=== PATIENT | male | born 1935 | race Caucasian/White ===

== ENCOUNTER 2021-04-18 08:06 | Emergency (ER) | payer OTHER, MEDICAID ==
[~2021-04-18] VITALS: Ht 162.6 cm; Wt 68.0 kg
[2021-04-18 08:08] VITALS: BP_SYST 151
[2021-04-18] MEDS ORDERED: MORPHINE 4 MG INJ. 4 MG/ML VIAL IM ONE (08:15)
[2021-04-18] MEDS ORDERED: HYDR-3917 PO (09:28)
[2021-04-18] MEDS ORDERED: IBUP-1969 PO (09:28)
[2021-04-18] MEDS ORDERED: KETOROLAC TROMETHAMINE 60 MG/2 ML VIAL IM ONE ×2 (12:15)
[2021-04-18 12:16] VITALS: BP_SYST 147
== END 2021-04-18 12:17 | disposition home or self-care (01) ==
LOC: SED 08:06
DX: M25.562 Pain in left knee (principal); I10 Essential (primary) hypertension; E11.9 Type 2 diabetes mellitus without complications
CPT/HCPCS: 73564; 96372; 99284; J1885; J2270

== ENCOUNTER 2022-01-14 09:29 | Inpatient (IN) | payer OTHER, MEDICAID, SELFPAY ==
[~2022-01-14] VITALS: Ht 162.6 cm; Wt 59.0 kg
[~2022-01-14 09:29] MED LIST: HYDR-3917 PO; IBUP-1969 PO
[2022-01-14 09:35] VITALS: BP_SYST 104
--- NOTE | 2022-01-14 09:42 | NUR ---
PT FREDERICK FROM HOME FOR GENERAL WEAKNESS X 2 DAYS. PIZZA BAKER CALLED 911, MORE LETHARGIC THAN USUAL. PT A0X3, IN NAD. RESP EVEN AND UNLABORED, ON RA @98%. PER ROBERT MAHAJAN FD, HE WAS HYPOTENSIVE AT SCENE 84/38, WAS GIVEN 250ML OF NS. CURRENTLY AT 104/63-P-79. BLOOD SUGAR AT SCENE-126MG/DL. CHRONIC A-FIB. SKIN PALE-INTACT. DENIES ANY RECENT ORAL OR RECTAL BLEEDING, DENIES BEING ON ANY BLOOD THINNERS. SAFETY PRECAUTIONS IN PLACE. WILL CONT TO MONITOR.
--- NOTE | 2022-01-14 09:44 | NUR ---
DR CARD IN ROOM FOR EXAM.
[2022-01-14] MEDS ORDERED: NACL 0.9% 1,000 ML IV ONE ×2 (10:00→11:30)
[2022-01-14] MEDS ORDERED: DILTIAZEM HCL 60 MG TABLET PO ONE ×2 (10:00→15:15)
[2022-01-14] MEDS ORDERED: dilTIAZem HCL IVP 5 MG/ML VIAL IVP ONE ×2 (10:00→11:15)
--- NOTE | 2022-01-14 10:14 | NUR ---
XRAY AT BEDSIDE
[2022-01-14 10:36] LABS: ANION GAP 16 (5-15); CALCIUM 7.7 mg/dL (8.4-11.0); CHLORIDE 97 mmol/L (98-107); CREATININE 2.76 mg/dL (0.55-1.30); GLUCOSE 138 mg/dL (70-99); SODIUM SERUM 131 mmol/L (136-145); UREA NITROGEN, BLOOD 59 mg/dL (8-21)
[2022-01-14 10:38] LABS: ACETONE, SERUM NEGATIVE (NEGATIVE)
[2022-01-14 10:42] LABS: ALANINE AMINOTRANSFERASE 26 U/L (12-78); ALBUMIN 2.8 g/dL (3.4-4.8); ASPARTATE AMINOTRANSFERASE 25 U/L (10-37); TOTAL BILIRUBIN 0.4 mg/dL (0.0-1.0)
--- NOTE | 2022-01-14 11:10 | NUR ---
PT CONTINUES TO BE HTPOTENSIVE AND IRREGULAR HEART RATE OF 130'S. DR CARD UPDATED, NEW ORDERS RECEIEVED AND PROCESSED.
[2022-01-14 11:24] LABS: BASOPHILS # (AUTO) 0.1 K/uL (0.0-0.2); BASOPHILS % (AUTO) 0.6 % (0.0-2.0); EOSINOPHILS # (AUTO) 0.2 K/uL (0.0-0.4); EOSINOPHILS % (AUTO) 1.4 % (0.0-4.0); HEMATOCRIT 32.8 % (36-54); HEMOGLOBIN 11.1 g/dL (14.0-18.0); LYMPHOCYTES # (AUTO) 2.2 K/uL (1.0-5.5); LYMPHOCYTES % (AUTO) 17.8 % (20.5-51.5); MEAN CORPUSCULAR HEMOGLOBIN 32 pg (27-31); MEAN CORPUSCULAR HGB CONC 34 % (32-36); MONOCYTES # (AUTO) 1.2 K/uL (0.0-1.0); MONOCYTES % (AUTO) 9.7 % (1.7-9.3); NEUTROPHILS # (AUTO) 8.6 K/uL (1.8-7.7); NEUTROPHILS % (AUTO) 70.5 % (40.0-70.0); PLATELET COUNT (AUTO) 359 K/uL (130-430); RED BLOOD CELL COUNT(AUTO) 3.42 MIL/uL (4.2-6.2); RED CELL DISTRIBUTION WIDTH 13.8 % (9.0-15.0); WHITE BLOOD COUNT (AUTO) 12.1 K/uL (4.8-10.8)
[2022-01-14 11:32] LABS: MEAN CORPUSCULAR VOLUME 96 fL (79.0-98.0)
[2022-01-14] MEDS ORDERED: cefTRIAXone 1 GM in D5W 50 ML IV ONE (11:45)
--- NOTE | 2022-01-14 11:46 | NUR ---
PT'S BP 112/62, HR-109, DR CARD MADE AWARE, PT IN NAD. RESP EVEN AND UNLABORED. WILL CONT TO MONITOR.
[2022-01-14] MEDS ORDERED: cefTRIAXone 1 GM VIAL ONE (11:52)
--- NOTE | 2022-01-14 12:40 | NUR ---
DR GARCIA IN ROOM FOR EXAM.
[2022-01-14 12:46] LABS: BILIRUBIN,URINE NEGATIVE (NEGATIVE); BLOOD, URINE 2+ (NEGATIVE); CLARITY/URINE TURBID (CLEAR); COLOR,URINE YELLOW (YELLOW); GLUCOSE,URINE NEGATIVE (NEGATIVE); KETONES,URINE NEGATIVE (NEGATIVE); LEUKOCYTE ESTERASE ,URINE 2+ (NEGATIVE); NITRITE, URINE POSITIVE (NEGATIVE); PROTEIN URINE 2+ (NEGATIVE); UROBILINOGEN,URINE 0.2 (0.2-1.0)
--- NOTE | 2022-01-14 13:00 | NUR ---
RECEIVED PT FROM SUMAN LOUISE. PT IS AAOX4. TELE [address] READING AFIB HR 101.. RESP E/U, LUNG SOUNDS CTA. ON R/A. NO COUGH OR SOB NOTED. ABDOMEN SOFT, NONTENDER, NONDISTENDED. BOWEL SOUNDS ACTIVE X4, VOIDS FREELY WITH URINAL WITH ASSIST. SKIN CDI. DISTAL PULSE NORMAL, SKIN WARM, NO EDEMA. IV CATH TO LAC AND RAC BOTH 2OG. NS INITIATED. PT DENIES C/P, PRESSURE AND PALPITATIONS. DENIES PAIN AND DISCOMFORT. ORIENTED TO CALL LIGHT AND ROOM, FALL PROTOCOL IN PLACE. BED IN LOWEST.
[2022-01-14 13:08] LABS: BACTERIA,URINE MODERATE /HPF (None Seen); WBC,URINE 50-80 /HPF (0-3)
--- NOTE | 2022-01-14 13:21 | NUR ---
Patient will be admitted to care of TELE. Admitted to unit. Will go to room . Belongings list completed. Complete and up to date summary report printed. SBAR report to be given at bedside with opportunity for questions.
--- NOTE | 2022-01-14 13:31 | NUR ---
CONSULTATION PAGED/CALLED Reason for Consultation: [] AFIB/HYPOTENSION Person Who was Notified: [] PRATEEK Consulting Physician: [] DR JACKSON Straight Knife Machine Cutter Specialty: [] CARDIO Ordering Physician: [] DR GARCIA
[2022-01-14] MEDS: NACL 0.9% 1,000 ML IV SCH ×2 (13:49→21:22)
[2022-01-14] MEDS ORDERED: GLUCOSE (DEXTROSE) ORAL GEL -Adults PO PRN (15:00)
[2022-01-14] MEDS ORDERED: D5W 1,000 ML IV PRN (15:00)
[2022-01-14] MEDS ORDERED: ONDANSETRON HCL 4 MG/2 ML VIAL IVP PRN (15:00)
[2022-01-14] MEDS ORDERED: DEXTROSE 50%-WATER 50 ML DISP.SYRIN IVP PRN (15:00)
[2022-01-14 16:10] VITALS: BP_SYST 88
[2022-01-14] MEDS: INSULIN REGULAR, HUMAN 100 UNITS/ML, 10 ML VIAL (humuLIN R) SUBCUT PRN (17:46)
--- NOTE | 2022-01-14 18:25 | NUR ---
CONSULTATION PAGED/CALLED Reason for Consultation: [] ARF Person Who was Notified: []DR BROTHERS Consulting Physician: [] DR BROTHERS Plush Brusher Specialty: [] NEPHRO Ordering Physician: []
--- NOTE | 2022-01-14 19:31 | NUR ---
ENDORSED ALL CARE TO SUMAN ROCKBREW HOUSE SUPERVISOR, ALL QUESTIONS AND CONCERNS ADDRESSED.
[2022-01-14 19:41] LABS: ANION GAP 13 (5-15); CALCIUM 7.3 mg/dL (8.4-11.0); CHLORIDE 101 mmol/L (98-107); CREATININE 2.29 mg/dL (0.55-1.30); GLUCOSE 141 mg/dL (70-99); POTASSIUM 3.9 mmol/L (3.5-5.1); SODIUM SERUM 133 mmol/L (136-145); UREA NITROGEN, BLOOD 54 mg/dL (8-21)
[2022-01-14 20:00] VITALS: BP_SYST 96
[2022-01-14] MEDS: ACETAMINOPHEN 325 MG TABLET PO PRN (21:23)
[2022-01-14] MEDS: ENOXAPARIN SODIUM 30 MG/0.3 ML SYRINGE SUBCUT SCH (21:29)
[2022-01-14] MEDS: DILTIAZEM HCL 60 MG TABLET PO SCH (21:30)
[2022-01-15] MEDS: NACL 0.9% 1,000 ML IV SCH ×3 (04:27→21:32)
[2022-01-15 07:27] LABS: ANION GAP 13 (5-15); CALCIUM 7.3 mg/dL (8.4-11.0); CHLORIDE 103 mmol/L (98-107); CREATININE 2.08 mg/dL (0.55-1.30); GLUCOSE 103 mg/dL (70-99); POTASSIUM 3.8 mmol/L (3.5-5.1); SODIUM SERUM 133 mmol/L (136-145); UREA NITROGEN, BLOOD 44 mg/dL (8-21)
--- NOTE | 2022-01-15 08:05 | NUR ---
OPENING NOTES: PATIENT EATING BREAKFAST. HOB ELEVATED. BREATHING EVEN AND NON LABORED TO RA. FALL, SAFETY AND ASPIRATION MEASURES REINFORCE. CALL LIGHT WITHIN REACH.
[2022-01-15 08:10] VITALS: BP_SYST 108
[2022-01-15] MEDS: DILTIAZEM HCL 60 MG TABLET PO SCH (08:13)
[2022-01-15] MEDS ORDERED: METOPROLOL TARTRATE 25 MG TABLET PO ONE (09:00)
[2022-01-15] MEDS ORDERED: ASPIRIN 81 MG TAB.CHEW PO ONE (09:00)
[2022-01-15] MEDS ORDERED: AMIODARONE HCL 200 MG TABLET PO ONE (09:00)
--- NOTE | 2022-01-15 09:10 | NUR ---
SPOKE TO DR. JACKSON: SPOKE TO DR. JACKSON RE: HIGH HR. DR. NIEVES MADE ORDERS. DR. AJCKSON SAW PATIENT DURING ROUNDS.
--- NOTE | 2022-01-15 09:22 | NUR ---
INFORMED US, B[place],TO NOTIFY FERNY WILL HR IS UP BETWEEN 150'S TO 180'S.
[2022-01-15] MEDS: cefTRIAXone 1 GM IVPB PREMIX 50 ML IV SCH (09:36)
[2022-01-15 10:07] LABS: EOSINOPHILS # (AUTO) 0.1 K/uL (0.0-0.4); EOSINOPHILS % (AUTO) 1.1 % (0.0-4.0); HEMATOCRIT 33.9 % (36-54); HEMOGLOBIN 11.5 g/dL (14.0-18.0); LYMPHOCYTES # (AUTO) 1.5 K/uL (1.0-5.5); LYMPHOCYTES % (AUTO) 14.3 % (20.5-51.5); MEAN CORPUSCULAR HEMOGLOBIN 33 pg (27-31); MEAN CORPUSCULAR HGB CONC 34 % (32-36); MEAN CORPUSCULAR VOLUME 96 fL (79.0-98.0); MONOCYTES # (AUTO) 0.8 K/uL (0.0-1.0); PLATELET COUNT (AUTO) 342 K/uL (130-430); RED BLOOD CELL COUNT(AUTO) 3.53 MIL/uL (4.2-6.2); RED CELL DISTRIBUTION WIDTH 14.6 % (9.0-15.0); WHITE BLOOD COUNT (AUTO) 10.8 K/uL (4.8-10.8)
[2022-01-15 10:10] LABS: BASOPHILS # (AUTO) 0.1 K/uL (0.0-0.2); BASOPHILS % (AUTO) 0.5 % (0.0-2.0); NEUTROPHILS # (AUTO) 8.3 K/uL (1.8-7.7); NEUTROPHILS % (AUTO) 77.1 % (40.0-70.0)
[2022-01-15 12:26] VITALS: BP_SYST 110
--- NOTE | 2022-01-15 14:00 | NUR ---
RN NOTES/BLADDER SCAN: BLADDER SCAN DONE. (387). PATIENT VOIDED ([address] GARCIA PATIENT REFUSED HERNANDEZ CATHETER INSERTION.
[2022-01-15] MEDS: ACETAMINOPHEN 325 MG TABLET PO PRN (16:57)
[2022-01-15 17:34] VITALS: BP_SYST 110
--- NOTE | 2022-01-15 17:51 | NUR ---
Dietitian Recommendations * CCHO, 2 gm Na diet, Glucerna TID (ONS yields 660 kcal/day, 30 gm protein/day) * Encourage increase PO intakes LP, RD Please refer to Nutrition Assessment for details. Addendum: 01/15/22 at [address] Amended: Links added.
--- NOTE | 2022-01-15 19:25 | NUR ---
CLOSING NOTES: PATIENT RESTING IN BED. NO S/S OF ACUTE DISTRESS NOTED. BED LOCKED, ALARM ON AND IN LOWEST POSITION. CALL LIGHT WITHIN REACH. FALL, SAFETY AND ASPIRATION MEASURES PROVIDED. NEEDS MET THROUGHOUT SHIFT. ENDORSED TO CONNECTION WORKER RN.
--- NOTE | 2022-01-15 19:30 | NUR ---
OPENING NOTES ENDORSED CARE FROM DAY SHIFT. PT IS SITTING IN BED WITH DAUGHTER BEDSIDE. NO APPARENT DISTRESS NOTED. FLUIDS RUNNING ORDERED. VITALS ARE STABLE. BED IN LOWEST POSITION WITH CALL LIGHT WITHIN REACH
[2022-01-15 20:00] VITALS: BP_SYST 134
[2022-01-15] MEDS ORDERED: AMIODARONE HCL 200 MG TABLET PO SCH (21:00)
[2022-01-15] MEDS: METOPROLOL TARTRATE 25 MG TABLET PO SCH (21:34)
[2022-01-15] MEDS: INSULIN REGULAR, HUMAN 100 UNITS/ML, 10 ML VIAL (humuLIN R) SUBCUT PRN (21:45)
[2022-01-15] MEDS: ENOXAPARIN SODIUM 30 MG/0.3 ML SYRINGE SUBCUT SCH (21:45)
--- NOTE | 2022-01-15 22:17 | NUR ---
BLADDER SCAN BLADDER SCAN REVEALED 807 ML RESIDUAL OF URINE. PT STILL REFUSING CATHETER INSERTION
[2022-01-16] VITALS: BP_SYST 95
[2022-01-16] MEDS: NACL 0.9% 1,000 ML IV SCH ×2 (03:23→17:31)
--- NOTE | 2022-01-16 06:00 | NUR ---
HYPOGLYCEMIA PT HAD AN EPISODE OF HYPOGLYCEMIA WITH A BLOOD SUGAR OF 51, NO DISTRESS OR SYMPTOMS NOTED. AFTER GIVING JUICE AND A SUGAR PACKET THE PTS BLOOD SUGAR WENT UP TO 73. DR GARCIA HAS BEEN PAGED AND AWAITING HIS CALL BACK. WILL CONTINUE TO MONITOR Addendum: 01/16/22 at 0700 by Roger Wright LVN DR GARCIA BEDSIDE,SPOKE WITH DR GARCIA AT 0650 BEDSIDE. NO CHANGE IN ORDERS AT THIS TIME
--- NOTE | 2022-01-16 06:19 | NUR ---
Attending Md Dr Pritchett was called, re: BS OF 73. Spoke to Wilda.
--- NOTE | 2022-01-16 07:01 | NUR ---
CLOSING NOTE ENDORSED CARE TO DAY SHIFT. PT IS SLEEPING IN BED . NO APPARENT DISTRESS NOTED. FLUIDS RUNNING ORDERED. VITALS ARE STABLE. BED IN LOWEST POSITION WITH CALL LIGHT WITHIN REACH
[2022-01-16 07:17] LABS: ALANINE AMINOTRANSFERASE 20 U/L (12-78); ALBUMIN 2.1 g/dL (3.4-4.8); ANION GAP 12 (5-15); ASPARTATE AMINOTRANSFERASE 40 U/L (10-37); CHLORIDE 106 mmol/L (98-107); CREATININE 1.71 mg/dL (0.55-1.30); GLUCOSE 51 mg/dL (70-99); POTASSIUM 3.8 mmol/L (3.5-5.1); SODIUM SERUM 135 mmol/L (136-145); THYROID STIMULATING HORMONE 2.34 uIu/mL (0.36-3.74); TOTAL BILIRUBIN 0.2 mg/dL (0.0-1.0); UREA NITROGEN, BLOOD 34 mg/dL (8-21)
[2022-01-16 07:34] LABS: CALCIUM 6.9 mg/dL (8.4-11.0)
--- NOTE | 2022-01-16 07:40 | NUR ---
at bedside to see patient. informed him of Calcium 6.9
[2022-01-16 08:00] VITALS: BP_SYST 130
[2022-01-16] MEDS: ASPIRIN 81 MG TAB.CHEW PO SCH (09:00)
[2022-01-16] MEDS: cefTRIAXone 1 GM IVPB PREMIX 50 ML IV SCH (09:00)
[2022-01-16] MEDS: METOPROLOL TARTRATE 25 MG TABLET PO SCH ×2 (09:00→21:14)
[2022-01-16] MEDS: TAMSULOSIN HCL 0.4 MG CAP PO SCH (09:00)
[2022-01-16 09:23] LABS: BASOPHILS % (AUTO) 0.4 % (0.0-2.0); EOSINOPHILS # (AUTO) 0.2 K/uL (0.0-0.4); EOSINOPHILS % (AUTO) 1.9 % (0.0-4.0); HEMATOCRIT 28.3 % (36-54); HEMOGLOBIN 9.5 g/dL (14.0-18.0); LYMPHOCYTES # (AUTO) 2.2 K/uL (1.0-5.5); LYMPHOCYTES % (AUTO) 20.6 % (20.5-51.5); MEAN CORPUSCULAR HEMOGLOBIN 33 pg (27-31); MEAN CORPUSCULAR HGB CONC 34 % (32-36); MEAN CORPUSCULAR VOLUME 96 fL (79.0-98.0); MONOCYTES # (AUTO) 0.9 K/uL (0.0-1.0); NEUTROPHILS # (AUTO) 7.4 K/uL (1.8-7.7); NEUTROPHILS % (AUTO) 69.1 % (40.0-70.0); PLATELET COUNT (AUTO) 292 K/uL (130-430); RED BLOOD CELL COUNT(AUTO) 2.93 MIL/uL (4.2-6.2); RED CELL DISTRIBUTION WIDTH 14.2 % (9.0-15.0); WHITE BLOOD COUNT (AUTO) 10.7 K/uL (4.8-10.8)
[2022-01-16 12:00] VITALS: BP_SYST 124
[2022-01-16 16:00] VITALS: BP_SYST 126
[2022-01-16 19:00] VITALS: BP_SYST 126
--- NOTE | 2022-01-16 19:15 | NUR ---
change of shift.pt.presents quiescent affect;calm,resting.pt.presents iv access x2 location rt.antecubital intact iv fluids infusing. iv access#2 location lt.antecubital intact iv lock.no c/o pain,nausea.pt.capable to reposition self.general status stable.respiratory status;unlabored@room air.call light/telephone w/in access of the pt.
--- NOTE | 2022-01-16 19:21 | NUR ---
OPENING NOTES ENDORSED CARE FROM DAY SHIFT. PT IS LYING IN BED. PT IS GRUMPY AND NOT HAPPY TO BE IN THE HOSPITAL. NO APPARENT DISTRESS NOTED. FLUIDS RUNNING ORDERED. BED IN LOWEST POSITION WITH CALL LIGHT WITHIN REACH
[2022-01-16 20:00] VITALS: BP_SYST 126; BP_SYST 127
--- NOTE | 2022-01-16 20:00 | NUR ---
pt.assessed.v/s assessed values wnl.no c/o pain,nausea.iv access intact iv fluids infusing.i have apprised the pt.that snacks/beverages are available w/in the shift.no requests posited.pt.capable to reposition self.call light/telephone w/in access of the pt.
--- NOTE | 2022-01-16 21:00 | NUR ---
2100p medications administered.pt.capable to ingest po medications w/out difficulty.no c/o pain,nausea.call light/telephone w/in access of the pt.
[2022-01-16] MEDS: ENOXAPARIN SODIUM 30 MG/0.3 ML SYRINGE SUBCUT SCH (21:12)
[2022-01-16] MEDS: AMIODARONE HCL 200 MG TABLET PO SCH (21:12)
--- NOTE | 2022-01-16 21:20 | NUR ---
BLADDER SCAN URINE RESIDUAL OF >527 ML WAS FOUND. PT STILL REFUSING HERNANDEZ CATHETER INSERTION AND STRAIGHT CATH. PT WAS EDUCATED ON HIS INCREASED RISK OF DEVELOPING A UTI. PT STILL REFUSED. PT ALSO REFUSED LOVENOX ADMINISTRATION.
--- NOTE | 2022-01-16 22:00 | NUR ---
pt.assessed.pt.presents quiescent affect;calm,somnolent.per flacc pain mgx pt.absent facial grimaces/body posturing.iv access intact iv fluids infusing.pt.capable to reposition self.pt.assessed for cleanliness.pt.repositioned.call light/telephone w/in access of the pt.
[2022-01-17] VITALS (7 sets, daily range): BP systolic 112–143
--- NOTE | 2022-01-17 | NUR ---
pt.assessed.v/s assessed values wnl.iv access intact iv fluids infusing.per flacc pain mgx pt.absent facial grimaces/body posturing.pt.assessed for cleanliness.pt.repositioned.call light/telephone placed w/in access of the pt.
--- NOTE | 2022-01-17 02:00 | NUR ---
pt.assessed.pt.presents quiescent affect;calm,somnolent.per flacc pain mgx pt.absent facial grimaces/body posturing. iv access intact iv fluids infusing.pt.assessed for cleanliness.pt.repositioned.call light/telephone placed w/in access of the pt.
--- NOTE | 2022-01-17 04:00 | NUR ---
pt.assessed.pt.presents quiescent affect calm,somnolent.iv access intact iv fluids infusing.per flacc pain mgx pt.absent facial grimaces/body posturing.pt.assessed for cleanliness.pt,repositioned.call light/telephone placed w/in access of the pt.
[2022-01-17] MEDS: NACL 0.9% 1,000 ML IV SCH (04:36)
--- NOTE | 2022-01-17 06:22 | NUR ---
pt.assessed.iv access intact IV FlUIDS INFUSiNG.nO C/O PaIN,NaUsEA.BLOOD glucose assessed VALUE;96MG/DL. snack/tea provided.pt.capable to reposition self.call light/telephone placed w/in access of the pt.
[2022-01-17 06:27] LABS: BASOPHILS % (AUTO) 0.3 % (0.0-2.0); EOSINOPHILS # (AUTO) 0.3 K/uL (0.0-0.4); EOSINOPHILS % (AUTO) 3.2 % (0.0-4.0); HEMATOCRIT 27.8 % (36-54); HEMOGLOBIN 9.6 g/dL (14.0-18.0); LYMPHOCYTES # (AUTO) 1.7 K/uL (1.0-5.5); LYMPHOCYTES % (AUTO) 19.9 % (20.5-51.5); MEAN CORPUSCULAR HEMOGLOBIN 33 pg (27-31); MEAN CORPUSCULAR HGB CONC 34 % (32-36); MEAN CORPUSCULAR VOLUME 97 fL (79.0-98.0); MONOCYTES # (AUTO) 0.7 K/uL (0.0-1.0); MONOCYTES % (AUTO) 8.5 % (1.7-9.3); NEUTROPHILS # (AUTO) 5.9 K/uL (1.8-7.7); NEUTROPHILS % (AUTO) 68.1 % (40.0-70.0); PLATELET COUNT (AUTO) 280 K/uL (130-430); RED BLOOD CELL COUNT(AUTO) 2.86 MIL/uL (4.2-6.2); RED CELL DISTRIBUTION WIDTH 14.2 % (9.0-15.0); WHITE BLOOD COUNT (AUTO) 8.6 K/uL (4.8-10.8)
[2022-01-17 06:50] LABS: ANION GAP 11 (5-15); CHLORIDE 108 mmol/L (98-107); CREATININE 1.46 mg/dL (0.55-1.30); GLUCOSE 97 mg/dL (70-99); POTASSIUM 3.8 mmol/L (3.5-5.1); SODIUM SERUM 137 mmol/L (136-145); UREA NITROGEN, BLOOD 25 mg/dL (8-21)
--- NOTE | 2022-01-17 07:35 | NUR ---
MORNING ROUNDS: PATIENT RESTING DURING ROUNDS. IV FLUIDS RUNNING AT RIGHT AC INTACT. CALL LIGHT WITH IN REACH. BED LOCKED AT LOWEST POSITION.SAFETY MEASURES RENDERED. CONTINUE TO MONITOR.
[2022-01-17] MEDS: METOPROLOL TARTRATE 25 MG TABLET PO SCH ×2 (09:10→20:27)
[2022-01-17] MEDS: AMIODARONE HCL 200 MG TABLET PO SCH (09:11)
[2022-01-17] MEDS: TAMSULOSIN HCL 0.4 MG CAP PO SCH (09:12)
[2022-01-17] MEDS: ASPIRIN 81 MG TAB.CHEW PO SCH (09:12)
[2022-01-17] MEDS: cefTRIAXone 1 GM IVPB PREMIX 50 ML IV SCH (09:40)
[2022-01-17] MEDS ORDERED: APIXABAN 2.5 MG TABLET PO ONE (10:15)
--- NOTE | 2022-01-17 10:30 | NUR ---
PHYSICAL THERAPIST: PHYSICAL THERAPIST WORKING WITH THE PATIENT. PT ASSISTED PATIENT TO AMBULATES USING FWW IN THE ROOM.TOLERATED WELL.
--- NOTE | 2022-01-17 11:30 | NUR ---
SITTING ON CHAIR: ASSISTED PATIENT SITTING ON THE CHAIR AND ATE LUNCH.
[2022-01-17] MEDS: INSULIN REGULAR, HUMAN 100 UNITS/ML, 10 ML VIAL (humuLIN R) SUBCUT PRN ×2 (11:33→17:02)
--- NOTE | 2022-01-17 13:35 | NUR ---
BACK TO BED: ASSISTED PATIENT BACK TO BED. USES URINAL TO VOID. HAD MINIMAL AMOUNT OF CLOUDY URINE.
--- NOTE | 2022-01-17 16:14 | NUR ---
Food Manager: special delivery worker Estefany spoke to patient at the bedside.
--- NOTE | 2022-01-17 16:17 | NUR ---
Obstetrician WM Marques met with SUMAN Salazar to discuss SW referral due to "patient living alone", and to inquire into this mental status prior to meeting with patient. WM Marques met with patient at bedside and completed introductions. Patient shared he currently lives in an apartment, and receives in-home support 5 days a week. He also shared his lives on the second floor in the same building but was unable to recall her name. He also received support from his daughter, but was unable to recall her name. Patient was unable to share when his hospital stay began, he was able to share not feeling well at home and his in home nurse contacting emergency services. MANAGER INTRANETCharlie Stephensa will followup with HCP upper caser to address concerns related to him living alone.
--- NOTE | 2022-01-17 17:00 | NUR ---
DAUGHTER VISITS: SPOKE WITH DTR BHAVIN AND WOULD LIKE TO TALK AGAIN WITH URO REGARDING HERNANDEZ INSERTION IF POSSIBLE TO GIVE PAIN MEDS OR NUMBING PRIOR TO HERNANDEZ INSERTION. UPDATES ANTONIETA.
--- NOTE | 2022-01-17 18:22 | NUR ---
DOWNGRADE TO MEDICAL SURGICAL: DOWNGRADE TO MS PER POLICY.
--- NOTE | 2022-01-17 18:35 | NUR ---
BLADDER SCAN: BLADDER SCAN SHOWED <529ML.PATIENT STILL REFUSING CATHETER INSERTION AND EXPLAINED THE POSSIBLE SIDE EFFECTS OF RETAINING URINE IN THE BLADDER .
--- NOTE | 2022-01-17 18:39 | NUR ---
EVENING ROUNDS: PATIENT HAD DINNER. ATE 50% OF HIS TRAY. IV FLUIDS RUNNING WELL RIGHT AC INTACT. CALL LIGHT WITH IN REACH. BED LOCKED AT LOWEST POSITION. NO ACUTE DISTRESS.CONTINUE TO MONITOR.
--- NOTE | 2022-01-17 19:15 | NUR ---
OPENING NOTES/ROUNDS; RECEIVED REPORT FROM OUTGOING NURSE. PT LYING IN BED, FACIAL EXPRESSIONS CALM AND RELAXED, NO S/SX OF PAIN, DISCOMFORT OR RESPIRATORY DISTRESS. VITALS MEASURED WNL, PT SATING 100% ON RA, TEMP 98.6, BP 112/46, R 17. PT DENIES ANY PAIN OR DISCOMFORT.
[2022-01-17] MEDS: APIXABAN 2.5 MG TABLET PO SCH (20:25)
[2022-01-18] MEDS: NACL 0.9% 1,000 ML IV SCH ×2 (00:38→21:08)
--- NOTE | 2022-01-18 05:24 | NUR ---
BLADDER SCAN BLADDER SCAN REVEALED URINE<343ML, STILL REFUSING HERNANDEZ CATHETER. WANTS BED SANCHEZ INSTAED FOR BM. BLOOD COLLECTED FOR LAB WORK, CBC, AND CMP.
--- NOTE | 2022-01-18 07:45 | NUR ---
Morning Rounds: Patient sleeping on the bed. Iv fluids running well at right arm intact. Call light with in reach. Bed locked at lowest position. No in any respiratory distress.
[2022-01-18 07:52] LABS: BASOPHILS % (AUTO) 0.6 % (0.0-2.0); EOSINOPHILS # (AUTO) 0.3 K/uL (0.0-0.4); EOSINOPHILS % (AUTO) 3.4 % (0.0-4.0); HEMATOCRIT 28.1 % (36-54); HEMOGLOBIN 9.7 g/dL (14.0-18.0); LYMPHOCYTES # (AUTO) 2.3 K/uL (1.0-5.5); LYMPHOCYTES % (AUTO) 26.1 % (20.5-51.5); MEAN CORPUSCULAR HEMOGLOBIN 35 pg (27-31); MEAN CORPUSCULAR HGB CONC 34 % (32-36); MEAN CORPUSCULAR VOLUME 103 fL (79.0-98.0); MONOCYTES # (AUTO) 0.7 K/uL (0.0-1.0); MONOCYTES % (AUTO) 7.8 % (1.7-9.3); NEUTROPHILS # (AUTO) 5.6 K/uL (1.8-7.7); NEUTROPHILS % (AUTO) 62.1 % (40.0-70.0); PLATELET COUNT (AUTO) 289 K/uL (130-430); RED BLOOD CELL COUNT(AUTO) 2.73 MIL/uL (4.2-6.2); RED CELL DISTRIBUTION WIDTH 14.1 % (9.0-15.0); WHITE BLOOD COUNT (AUTO) 8.9 K/uL (4.8-10.8)
[2022-01-18 08:09] LABS: ALANINE AMINOTRANSFERASE 28 U/L (12-78); ALBUMIN 2.1 g/dL (3.4-4.8); ANION GAP 13 (5-15); ASPARTATE AMINOTRANSFERASE 43 U/L (10-37); CALCIUM 7.1 mg/dL (8.4-11.0); CHLORIDE 107 mmol/L (98-107); CREATININE 1.32 mg/dL (0.55-1.30); GLUCOSE 80 mg/dL (70-99); SODIUM SERUM 135 mmol/L (136-145); TOTAL BILIRUBIN 0.2 mg/dL (0.0-1.0); UREA NITROGEN, BLOOD 24 mg/dL (8-21)
[2022-01-18 08:10] VITALS: BP_SYST 113
--- NOTE | 2022-01-18 08:23 | NUR ---
PHYSICAL THERAPY CO-SIGN The Physical Therapy Progress Notes documented by Inset Cutter have been reviewed. Reviewed/Co-Signed by: Paul Driscoll Documentation Done by: SHANTELLE BONILLA PTA Addendum: 01/18/22 at 0823 by Paul Driscoll PT Amended: Links added.
[2022-01-18] MEDS: cefTRIAXone 1 GM IVPB PREMIX 50 ML IV SCH (08:26)
[2022-01-18] MEDS: ASPIRIN 81 MG TAB.CHEW PO SCH (08:26)
[2022-01-18] MEDS: TAMSULOSIN HCL 0.4 MG CAP PO SCH (08:28)
[2022-01-18] MEDS: APIXABAN 2.5 MG TABLET PO SCH ×2 (08:28→21:10)
[2022-01-18] MEDS: METOPROLOL TARTRATE 25 MG TABLET PO SCH ×2 (08:29→21:09)
[2022-01-18] MEDS: AMIODARONE HCL 200 MG TABLET PO SCH (08:32)
--- NOTE | 2022-01-18 08:42 | NUR ---
TRAINING PROGRAM DEVELOPER ROUNDS: TRAINING PROGRAM DEVELOPER FOR URO CAME TO SEE PATIENT AND INFORMED HER PT'S DAUGHTER BHAVIN WANTS TO TALK TO URO FOR SOME QUESTIONS/ISSUES REGARDING CATHETER PLACEMENT.
[2022-01-18] MEDS: ACETAMINOPHEN 325 MG TABLET PO PRN (11:17)
[2022-01-18 12:23] VITALS: BP_SYST 123
--- NOTE | 2022-01-18 13:42 | NUR ---
Nutrition F/U Admitting Diagnosis Atr fibr, hypotension Reviewed Pertinent Medical/Surgical Hx Medical Record Medical History Comment: DM, HTN, and typically non-compliant w/ diet and BG control per physician notes Pt also found w/ sepsis, septic shock, complicated UTI, bilat hydronephrosis, distended bladder w/ wall thickening, and acute obstructive uropathy per physician notes SARS-CoV-2 Ag (Rapid) Negative 01/[address] bedside visit deferred d/t high RD workload. Per EMR review, pt has urinary retention and is refusing FC; S/P renal US suggestive of upper tract obstruction per MD notes; on RA; 57% average PO intakes x7 meal records; abd is soft w/ active bowel sounds; last BM x2 01/17; Yaakov scale: 19, no PIs noted. Pts PO intake improved slightly, but still needs ONS. Current Diet Order/Nutrition Support Consistent Carbohydrate, 2 gm Na, Glucerna shake TID x3 days Patient/Significant Other Unable To Verbalize Education Provided Not Indicated Pertinent Medications SSI, Lopressor Pertinent Labs 01/18: Na 135 L, BUN 24 H, Cr 1.32 H, BG 80 WNL, POC BG 148 H 01/15: HgbA1C 6.8H Height (Feet) 5 feet Height (Inches) 4.00 inches Weight (Pounds) 130 pounds Weight (Calculated Kilograms) 58.127341 kilograms Patient Weight 58.967 kg Body Mass Index 22.31 kg/m2 %IBW 100 [place]/Adjusted Body Weight 130#/59 kg Recent Weight Change Unable to verify Weight Status Underweight Food Allergies Unable to verify Usual Diet At Home Unable to verify Current % PO Poor (25-49%) Estimated Energy Expenditure (kcals/day) 6111-4924 (30-35 kcal/kg CBW d/t sepsis) Estimated Protein Required (g/day) 89-118 gm/day (1.5-2 gm/kg CBW d/t sepsis) Estimated Fluid Required (l/day) 1.8-2 (1 ml/kcal/day for maintenance) Problem/Etiology/Signs/Symptoms Increased nutritional needs R/T metabolic demands AEB estimated nutritional requirements for sepsis. (*ongoing) Expected Outcomes/Goals - Monitor appetite and PO intakes w/ goal of pt meeting >50% of estimated nutritional needs, labs trending WNL, normal GI function, and skin integrity/wt maintenance Dietitian Recommendations * Continue current diet prescription: CCHO, 2 gm Na diet, Glucerna TID (ONS yields 660 kcal/day, 30 gm protein/day) * Encourage increase PO intakes Follow Up High Risk: F/U in 2-3days
--- NOTE | 2022-01-18 14:30 | NUR ---
MD ROUNDS: DR GARCIA CAME TO SEE PATIENT IN THE ROOM. HE WILL SPEAK TO DAUGHTER BHAVIN REGARDING PLAN OF CARE AND UPDATES.
[2022-01-18 16:01] VITALS: BP_SYST 128
--- NOTE | 2022-01-18 18:34 | NUR ---
EVENING ROUNDS: PATIENT STILL HAVING DINNER. IV FLUIDS RUNNING WELL AT RIGHT FOREARM. CALL LIGHT WITH IN REACH. BED LOCKED AT LOWEST POSITION. NO ACUTE DISTRESS.
--- NOTE | 2022-01-18 18:38 | NUR ---
BLADDER SCAN: BLADDER SCAN SHOWED <429ML.
--- NOTE | 2022-01-18 18:50 | NUR ---
END OF SHIFT: PATIENT STILL HAVING HIS DINNER. IV FLUIDS RUNNING AT RIGHT FOREARM INTACT.CALL LIGHT WITH IN REACH.BED LOCKED AT LOWEST POSITION.CONTINUE TO MONITOR.STABLE.
[2022-01-18 19:00] VITALS: BP_SYST 123
--- NOTE | 2022-01-18 19:30 | NUR ---
Patient received from AM shift. Patient is AA&Ox3 able to make needs known denies chest pain or SOB. Chest rise is even and unlabored on RA. Normal heart sounds present. Active BS x4 on auscultation, no distention noted, denies pain with palpation. Patient is able to void into the urinal and denies any pain with urination at this time. PIV noted to RAC and is running NS at 50ml/hr, C/D/I, no s/s of infiltration. Safety measures are in place including: Bed locked, armed, in the lowest position, bed rails up x2, and patient has call light within reach. Will continue to monitor throughout the shift.
[2022-01-18 20:00] VITALS: BP_SYST 123
[2022-01-19 02:00] VITALS: BP_SYST 120
--- NOTE | 2022-01-19 05:30 | NUR ---
BLADDER SCAN: BLADDER SCAN SHOWED <290ML in bladder Patient is still refusing traylro cath, states "only if knocked out first". Patient is voiding in urinal 250ml and had episode of incontinence in clau pad.
--- NOTE | 2022-01-19 06:45 | NUR ---
Patient is in bed resting no s/s of distress is noted. Chest rise is even and unlabored on RA and patient is able to verbalize needs and denies any pain or distress. All current shift needs have been met and patient has call light within reach. Will differ further care to AM shift nurse for continuity of care.
--- NOTE | 2022-01-19 07:29 | NUR ---
PHYSICAL THERAPY CO-SIGN The Physical Therapy Progress Notes documented by Optical Worker have been reviewed. Reviewed/Co-Signed by: Paul Driscoll Documentation Done by: SHANTELLE BONILLA PTA Addendum: 01/19/22 at 0730 by Paul Driscoll PT Amended: Links added.
[2022-01-19 08:00] VITALS: BP_SYST 142
[2022-01-19] MEDS: TAMSULOSIN HCL 0.4 MG CAP PO SCH (10:06)
[2022-01-19] MEDS: ASPIRIN 81 MG TAB.CHEW PO SCH (10:06)
[2022-01-19] MEDS: APIXABAN 2.5 MG TABLET PO SCH (10:10)
[2022-01-19] MEDS: METOPROLOL TARTRATE 25 MG TABLET PO SCH (10:12)
[2022-01-19] MEDS: ACETAMINOPHEN 325 MG TABLET PO PRN (10:15)
[2022-01-19] MEDS: AMIODARONE HCL 200 MG TABLET PO SCH (10:19)
[2022-01-19] MEDS: cefTRIAXone 1 GM IVPB PREMIX 50 ML IV SCH (11:03)
[2022-01-19 13:16] VITALS: BP_SYST 143
--- NOTE | 2022-01-19 14:24 | NUR ---
CHRISTOFER FELIX, SPOKE WITH SAL, INFORMED OF CHANGE OF ATTENDING MD TO DR GARCIA
[2022-01-19 16:00] VITALS: BP_SYST 140
[2022-01-19] MEDS ORDERED: AMIO200T66 PO (16:12)
[2022-01-19] MEDS ORDERED: APIX2.5T PO (16:13)
[2022-01-19] MEDS ORDERED: TAMS0.4C96 PO (16:15)
[2022-01-19] MEDS ORDERED: ASA81 PO (16:16)
[2022-01-19] MEDS ORDERED: CEPH250C PO (16:17)
--- NOTE | 2022-01-19 16:17 | NUR ---
Discharge Planning: DCP faxed pt referral to [facility] [phone], DCP to follow up.
[2022-01-19 16:29] VITALS: BP_SYST 135
[2022-01-19] MEDS: NACL 0.9% 1,000 ML IV SCH (16:53)
--- NOTE | 2022-01-19 18:34 | NUR ---
HOME INSTUCTIONS GIVEN TO PATIENTS DAUGHTER. HOME IN STABLE CONDITION. REF BLOOD SUGAR TEST. STATED H WILL DO AT HOME.
--- NOTE | 2022-01-20 07:26 | NUR ---
PHYSICAL THERAPY CO-SIGN The Physical Therapy Progress Notes documented by Long Term Care Administrator have been reviewed. Reviewed/Co-Signed by: Paul Driscoll Documentation Done by: SHANTELLE BONILLA PTA Addendum: 01/20/22 at 0726 by Paul Driscoll PT Amended: Links added.
== END 2022-01-19 18:45 | disposition home health service (06) | DRG 871 ==
LOC: SED 09:29 → STU 12:08 → SMU 01-17 22:12
PROVIDERS: ADMIT Internal Medicine Hospice and Palliative Medicine; ATTEND Internal Medicine
DX: A41.9 Sepsis, unspecified organism (principal); R65.21 Severe sepsis with septic shock; N17.9 Acute kidney failure, unspecified; N13.6 Pyonephrosis; I11.0 Hypertensive heart disease with heart failure; Z20.822 Contact with and (suspected) exposure to COVID-19; Z53.29 Procedure and treatment not carried out because of patient's decision for other reasons; I50.9 Heart failure, unspecified; F03.90 Unspecified dementia, unspecified severity, without behavioral disturbance, psychotic disturbance, mood disturbance, and anxiety; E11.9 Type 2 diabetes mellitus without complications; I48.91 Unspecified atrial fibrillation; Z87.891 Personal history of nicotine dependence; Z95.1 Presence of aortocoronary bypass graft
CPT/HCPCS: 36415; 71045; 76770; 80048; 80053; 81000; 82009; 82550; 82962; 83036; 83605; 83880; 84443; 84484; 85025; 87040; 87086; 93005; 93306; 96361; 96365; 96375; 96376; 97110-GP; 97112-GP; 97116-GP; 97530-GP; 99285; G0378; J0696; J1650; J1815; J3490